=== PATIENT | male | born 1955 | race Caucasian/White ===

== ENCOUNTER 2018-04-24 22:43 | Observation (INO) | payer BC ==
[2018-04-24] MEDS ORDERED: Morphine 2 MG/ML Syringe IVPUSH PRN (23:36)
--- NOTE | 2018-04-24 23:49 | PCM.HP ---
H&P History of Present Illness - General Date of Service: 04/24/18 Admit Problem/Dx: Admission Diagnosis/Problem Admission Diagnosis/Problem Appendicitis Source of Information: Patient History Limitations: Reports: No Limitations - History of Present Illness Onset of Symptoms: Reports: Today, Gradual Duration of Symptoms: Reports: Getting Worse Location: Reports: Abdomen Quality: Reports: Dull, Pressure Severity: Mild Improves with: Reports: None Worsens with: Reports: Breathing, Movement Associated Symptoms: Reports: Loss of Appetite. Denies: Confusion, Chest Pain, Cough, Fever/Chills, Nausea/Vomiting, Shortness of Breath Right Lower Abdominal Pain Score (Numeric/FACES): 1 - Related Data Allergies/Adverse Reactions: Allergies Allergy/AdvReac Type Severity Reaction Status Date / Time No Known Allergies Allergy Verified 04/24/18 22:47 Home Medications: Home Meds . [No Known Home Meds] 04/24/18 [History] Past Medical History - Past Health History Medical/Surgical History: Denies Medical/Surgical History (Healthy smoker) - Past Surgical History HEENT Surgical History: Reports: Tonsillectomy Social & Family History - Family History Family Medical History: Noncontributory H&P Review of Systems - Review of Systems: Review Of Systems: ROS reveals no pertinent complaints other than HPI. General: Reports: No Symptoms HEENT: Reports: No Symptoms Pulmonary: Reports: No Symptoms Cardiovascular: Reports: No Symptoms Gastrointestinal: Reports: No Symptoms Genitourinary: Reports: No Symptoms Musculoskeletal: Reports: No Symptoms Skin: Reports: No Symptoms Psychiatric: Reports: No Symptoms Neurological: Reports: No Symptoms Hematologic/Lymphatic: Reports: No Symptoms Immunologic: Reports: No Symptoms Exam - Exam Exam: See Below - Vital Signs Vital Signs: Last Vital Signs Temp 100.1 F 04/24/18 22:44 Pulse 83 04/24/18 22:44 Resp 16 04/24/18 22:44 BP 120/61 04/24/18 22:44 Pulse Ox 92 L 04/24/18 22:44 Weight: 195 lb - Exam General: Alert, Oriented, Cooperative HEENT: PERRLA, Hearing Intact, Mucosa Moist & [place], Nares Patent, Normal Nasal Septum, Posterior Pharynx Clear, Conjunctiva Clear, EOMI, EACs Clear, TMs Clear Neck: Supple, Trachea Midline, 2 Lungs: Clear to Auscultation, Normal Respiratory Effort Cardiovascular: Regular Rate, Regular Rhythm GI/Abdominal Exam: Normal Bowel Sounds, Soft, Tender (Male) Exam: No Hernia, Normal Inspection Rectal (Males) Exam: Deferred Back Exam: Normal Inspection Extremities: Normal Inspection Peripheral Pulses: 4+: Posterior Tibial (L), Posterior Tibial (R), Dorsalis Pedis (L), Dorsalis Pedis (R) Skin: Warm, Dry Neurological: Cranial Nerves Intact Neuro Extensive - Mental Status: Alert, Oriented x3, Normal Mood/Affect, Normal Cognition, Memory Intact Neuro Extensive - Motor, Sensory, Reflexes: CN II-XII Intact Psychiatric: Alert, Normal Affect Problem List Initiated/Reviewed/Updated: Yes Orders Last 24hrs: Active Orders 24 hr Category Date Time Status Admission Status [Patient Status] [ADT] Routine ADT 04/24/18 23:04 Active RT Incentive Spirometry [RC] Q1HWA Care 04/24/18 23:32 Ordered Verify Patient Consent Obtain [RC] ASDIRECTED Care 04/24/18 23:32 Ordered Dextrose 5%-1/2 Normal Saline with KCl 20 mEq @ 125 mL/ Med 04/24/18 23:45 Ordered Hr (1000 mL) D5 1/2 NS w/ 20 mEq/L KCl 1,000 ml IV ASDIRECTED Morphine Med 04/24/18 23:36 Ordered 2 mg IVPUSH Q1H PRN cefTRIAXone [Rocephin] Med 04/25/18 09:00 Once 1,000 mg IVPUSH ONETIME ONE metroNIDAZOLE/Normal Saline [Flagyl 500 MG in NS 100 ML Med 04/24/18 23:45 Ordered ] 500 mg Premix Bag 1 bag IV Q8H Resuscitation Status Routine Resus Stat 04/24/18 23:32 Ordered Medication Orders Ceftriaxone Sodium (Rocephin) 1,000 mg IVPUSH ONETIME ONE Stop: 04/25/18 09:01 Potassium Chloride/Dextrose/Sod Cl (D5 1/2 Ns W/ 20 Meq/L Kcl) 1,000 mls @ 125 mls/hr IV ASDIRECTED [facility] Metronidazole 500 mg/ Premix 100 mls @ 100 mls/hr IV Q8H [facility] Morphine Sulfate (Morphine) 2 mg IVPUSH Q1H PRN PRN Reason: Abdominal Pain CT c/w early appendicitis. 5 mm pulmonary nodule noted and discussed with patient and and they will follow up with PMD Riska and alternatives of laparoscopic possible open appendectomy fully discussed and accepted.
[2018-04-25] MEDS ORDERED: Enoxaparin 40 MG/0.4 ML Syringe SUBCUT ONE (00:01)
[2018-04-25] MEDS: D5 1/2 NS w/ 20 mEq/L KCl 1,000 ML IV SCH ×2 (00:29→08:22)
[2018-04-25] MEDS: metroNIDAZOLE/Normal Saline 500 MG in Premix Bag 1 BAG IV SCH ×2 (00:32→06:06)
--- NOTE | 2018-04-25 08:44 | PCM.PREANE ---
Preanesthetic Assessment - Procedure Proposed Procedure: lap appy - Anesthesia/Transfusion/Family Hx Anesthesia History: Prior Anesthesia Without Reaction Family History of Anesthesia Reaction: No Transfusion History: No Prior Transfusion(s) - Review of Systems General: Fever, Chills (yesterday am at 3 ) Pulmonary: No Symptoms Cardiovascular: No Symptoms Gastrointestinal: Abdominal Pain (right lower) Neurological: No Symptoms Other: Reports: None - Physical Assessment NPO Status Date: 04/24/18 NPO Status Time: 22:30 Pulse: 98 O2 Sat by Pulse Oximetry: 96 Respiratory Rate: 18 Blood Pressure: 117/54 Temperature: 100.0 F Vital Signs: Last Vital Signs Temp 100.0 F 04/25/18 08:34 Pulse 98 04/25/18 08:34 Resp 18 04/25/18 08:34 BP 117/54 L 04/25/18 08:34 Pulse Ox 92 L 04/25/18 08:34 Height: 6 ft Weight: 88.451 kg ASA Class: 2 Mental Status: Alert & Oriented x3 Airway Class: Mallampati = 1 Dentition: Reports: Normal Dentition Thyro-Mental Finger Breadths: 2 Mouth Opening Finger Breadths: 3 ROM/Head Extension: Full Lungs: Clear to Auscultation, Normal Respiratory Effort, Decreased Breath Sounds Cardiovascular: Regular Rate, Regular Rhythm - Allergies Allergies/Adverse Reactions: Allergies Allergy/AdvReac Type Severity Reaction Status Date / Time No Known Allergies Allergy Verified 04/24/18 22:47 - Blood Blood Available: No - Acknowledgements Anesthesia Type Planned: General Anesthesia Pt an Appropriate Candidate for the Planned Anesthesia: Yes Alternatives and Risks of Anesthesia Discussed w Pt/Guardian: Yes Pt/Guardian Understands and Agrees with Anesthesia Plan: Yes PreAnesthesia Questionnaire - Past Health History Medical/Surgical History: Denies Medical/Surgical History (Healthy smoker) HEENT History: Reports: Other (See Below) Other HEENT History: Wears glasses. Recent Optometry appt noted to have small cataracts just starting Cardiovascular History: Reports: None Respiratory History: Reports: None, Other (See Below) (ct lung shows small nodule lungs) Gastrointestinal History: Reports: GERD (intermittent) Psychiatric History: Reports: None Oncologic (Cancer) History: Reports: None - Past Surgical History HEENT Surgical History: Reports: Tonsillectomy - History Comment History Comment: home meds- vits and ibuprofen - SUBSTANCE USE Smoking Status *Q: Current Every Day Smoker Tobacco Use Within Last Twelve Months: Cigarettes Second Hand Smoke Exposure: Yes Days Per Week of Alcohol Use: 1 Number of Drinks Per Day: 2 Total Drinks Per Week: 2 Recreational Drug Use History: No - HOME MEDS Home Medications: Home Meds . [No Known Home Meds] 04/24/18 [History] - CURRENT (IN HOUSE) MEDS Current Meds: Current Medications Cefazolin Sodium (Ancef) 2 gm IVPUSH ONETIME [facility] Stop: 04/25/18 12:00 Potassium Chloride/Dextrose/Sod Cl (D5 1/2 Ns W/ 20 Meq/L Kcl) 1,000 mls @ 125 mls/hr IV ASDIRECTED [facility] Last Admin: 04/25/18 08:22 Dose: 125 mls/hr Metronidazole 500 mg/ Premix 100 mls @ 100 mls/hr IV Q8H [facility] Last Admin: 04/25/18 06:06 Dose: 100 mls/hr Morphine Sulfate (Morphine) 2 mg IVPUSH Q1H PRN PRN Reason: Abdominal Pain Discontinued Medications Ceftriaxone Sodium (Rocephin) 1,000 mg IVPUSH ONETIME ONE Stop: 04/25/18 09:01 Enoxaparin Sodium (Lovenox) 40 mg SUBCUT ONETIME ONE Stop: 04/25/18 00:02 Last Admin: 04/25/18 00:31 Dose: 40 mg
[2018-04-25] MEDS ORDERED: Albuterol 0.083% 2.5 MG/3 ML Neb Soln NEB ONE (08:51)
[2018-04-25] MEDS ORDERED: ceFAZolin 1 GM Vial IVPUSH SCH (09:00)
[2018-04-25] MEDS ORDERED: cefTRIAXone 1,000 MG VIAL IVPUSH ONE (09:00)
[2018-04-25] MEDS ORDERED: Propofol 200 MG/20 ML SDV ONE (10:06)
[2018-04-25] MEDS ORDERED: Midazolam 1 MG/ML 2 ML SDV ONE (10:06)
[2018-04-25] MEDS ORDERED: Ondansetron 4 MG/2 ML SDV ONE (10:06)
[2018-04-25] MEDS ORDERED: fentaNYL 250 MCG/5 ML SDV ONE (10:06)
[2018-04-25] MEDS ORDERED: Rocuronium 50 MG/5 ML Vial ONE (10:06)
[2018-04-25] MEDS ORDERED: Lidocaine 1% 4 ML ONE (10:06)
[2018-04-25] MEDS ORDERED: Lactated Ringers 1,000 ML ONE ×2 (10:15→11:27)
[2018-04-25] MEDS ORDERED: Dexamethasone 4 MG/ML SDV ONE (10:46)
[2018-04-25] MEDS ORDERED: Phenylephrine/Normal Saline 100 MCG/ML 10 ML Syringe ONE (10:49)
[2018-04-25] MEDS ORDERED: HYDROmorphone 0.5 MG/0.5 ML Syringe ONE ×2 (10:50→10:51)
[2018-04-25] MEDS ORDERED: ceFAZolin 1 GM Vial ONE (10:51)
[2018-04-25] MEDS: Bupivacaine 0.5% 30 ML SDV ONE ×2 (11:26→11:43)
[2018-04-25] MEDS ORDERED: Neostigmine Methylsulfate 1 MG/ML 5 ML Syringe ONE (11:43)
[2018-04-25] MEDS ORDERED: Ketorolac 30 MG/ML SDV ONE (11:52)
--- NOTE | 2018-04-25 12:11 | PCM.POSTAN ---
POST ANESTHESIA ASSESSMENT - MENTAL STATUS Mental Status: Somnolent - VITAL SIGNS Pulse Rate: 90 SaO2: 91 Resp Rate: 14 Blood Pressure: 102/61 Temperature: 36.5 C - RESPIRATORY Respiratory Status: Respiratory Rate WNL, Airway Patent, O2 Saturation Stable, Supplemental Oxygen - CARDIOVASCULAR CV Status: Pulse Rate WNL, Blood Pressure Stable - GASTROINTESTINAL GI Status: No Symptoms - PAIN Pain Score: 0 - POST OP HYDRATION Hydration Status: Adequate & Stable
[2018-04-25] MEDS ORDERED: Meperidine 50 MG/ML Vial IVPUSH PRN (12:12)
[2018-04-25] MEDS ORDERED: fentaNYL 100 MCG/2 ML SDV IVPUSH PRN (12:12)
[2018-04-25] MEDS ORDERED: diphenhydrAMINE 50 MG/ML SDV IVPUSH PRN (12:12)
[2018-04-25] MEDS ORDERED: Ondansetron 4 MG/2 ML SDV IVPUSH PRN (12:12)
[2018-04-25] MEDS ORDERED: Acetaminophen/HYDROcodone 325-5 MG Tab PO PRN (12:15)
--- NOTE | 2018-04-25 12:15 | PCM.OPNOTE ---
- General Post-Op/Procedure Note Date of Surgery/Procedure: 04/25/18 Operative Procedure(s): Laparoscopic appendectomy Findings: appendicitis with perforation without free peritoneal contamination Pre Op Diagnosis: appendicitis Post-Op Diagnosis: same Anesthesia Technique: General ET Tube Primary Surgeon: Malcolm Crowley EBL in mLs: 10 Free Text/Narrative:: Intake & Output 04/24/18 04/25/18 04/25/18 22:59 06:59 14:59 Intake Total 948 Output Total 2150 Balance -1202
--- NOTE | 2018-04-25 12:28 | OR ---
DATE OF OPERATION: 04/25/2018 SURGEON: Malcolm Crowley MD PREOPERATIVE DIAGNOSIS: Appendicitis. POSTOPERATIVE DIAGNOSIS: Appendicitis. OPERATION PERFORMED: Laparoscopic appendectomy. ANESTHESIA: General via endotracheal tube. DESCRIPTION OF PROCEDURE: The patient was taken to the operating room. After informed consent, proper identification, and time-out, he was induced under general endotracheal inhalation anesthesia, and the abdomen was prepped and draped in a standard fashion and entered through a 2-cm incision above the umbilicus, which was carried down to the deep tissues with Metzenbaum scissors and Bovie cautery. The fascia was entered and digitally explored and secured with #1 Prolene pursestring suture and a Amanda cannula was placed. The abdomen was insufflated with CO2 and a 5-mm port was placed in the left lower abdomen and a 5-mm port in the right upper abdomen under direct visual observation. The appendix was inflamed and adherent to the anterior abdominal wall and the adhesions were taken down with irrigation and hydrodissection. The appendix was able to be elevated. The mesoappendix was localized and the base of the appendix was free of any inflammation. The appendix was divided with a SUJIT stapler at the cecum and the mesoappendix was divided in continuity between multiple Hemoclips. Hemostasis was assured. The appendix was placed into an EndoCatch bag and removed through the umbilical port without contamination of the skin. The wound was irrigated with copious amounts of saline solution. Sponge and needle counts were correct and the midline trocar site was closed with #1 Prolene suture. Previously placed trocars were removed under direct visual observation as was the closure of the midline trocar site. Deep tissues were approximated with 0 Vicryl interrupted sutures. The skin was closed with 3-0 Monocryl subcuticular closure at the small port sites. The skin at the umbilical port site was approximated loosely with 3-0 Vicryl suture and left open for secondary intention healing. The patient tolerated the procedure well, estimated blood loss was less than 10 mL, sponge and needle counts were correct, and he was taken to recovery room in satisfactory condition. ESTIMATED BLOOD LOSS: MMODAL /[id number]
[2018-04-25] MEDS ORDERED: HYDROmorphone 0.5 MG/0.5 ML Syringe IVPUSH ONE (12:35)
--- NOTE | 2018-04-25 12:57 | PCM48HPAN ---
Post Anesthesia Note - EVALUATION WITHIN 48HRS OF ANESTHETIC Vital Signs in Normal Range: Yes Patient Participated in Evaluation: Yes Respiratory Function Stable: Yes Airway Patent: Yes Cardiovascular Function Stable: Yes Hydration Status Stable: Yes Pain Control Satisfactory: Yes Nausea and Vomiting Control Satisfactory: Yes Mental Status Recovered: Yes
--- NOTE | 2018-04-25 17:38 | PCM.DCSUM1 ---
Discharge Summary - Discharge Data Discharge Date: 04/25/18 Discharge Disposition: Home, Self-Care 01 Condition: Good - Patient Summary/Data Operative Procedure(s) Performed: Laparoscopic appendectomy Complications: none Recommended Follow-up Testing/Procedures: Follow up with DR Call one week - Patient Instructions Diet: Heart Healthy Diet Activity: As Tolerated, Cough & Deep Breathe, No Lifting Over 10 Pounds Driving: Do Not Drive Showering/Bathing: May Shower Notify Provider of: Fever, Increased Pain, Swelling and Redness, Drainage, Nausea and/or Vomiting - Discharge Plan *PRESCRIPTION DRUG MONITORING PROGRAM REVIEWED*: No *COPY OF PRESCRIPTION DRUG MONITORING REPORT IN PATIENT RAMA: No Prescriptions/Med Rec: Acetaminophen/HYDROcodone [[place] 325-5 MG] 1 tab PO Q4H PRN #20 tablet PRN Reason: Pain (Moderate 4-6) Home Medications: Home Meds Acetaminophen/HYDROcodone [[place] 325-5 MG] 1 tab PO Q4H PRN #20 tablet 04/25/18 [Rx] Patient Handouts: Laparoscopic Appendectomy, Adult, Care After, Surgical Site Infections FAQs - CHURCH, Steps to Quit Smoking - Discharge Summary/Plan Comment DC Time >30 min.: No Discharge Summary/Plan Comment: follow up Dr Call 1 week - General Info Date of Service: 04/25/18 Functional Status: Reports: Pain Controlled - Review of Systems General: Reports: No Symptoms HEENT: Reports: No Symptoms Pulmonary: Reports: No Symptoms Cardiovascular: Reports: No Symptoms Gastrointestinal: Reports: No Symptoms Genitourinary: Reports: No Symptoms Musculoskeletal: Reports: No Symptoms Skin: Reports: No Symptoms Neurological: Reports: No Symptoms Psychiatric: Reports: No Symptoms - Patient Data Vitals - Most Recent: Last Vital Signs Temp 98.7 F 04/25/18 16:00 Pulse 65 04/25/18 16:31 Resp 16 04/25/18 13:06 BP 106/63 04/25/18 16:31 Pulse Ox 98 04/25/18 16:31 Weight - Most Recent: 195 lb I&O - Last 24 hours: Intake & Output 04/25/18 04/25/18 04/25/18 06:59 14:59 22:59 Intake Total 948 400 850 Output Total 2150 Balance -1202 400 850 Med Orders - Current: Current Medications Hydrocodone Bitart/Acetaminophen ([place] 325-5 Mg) 2 tab PO Q4H PRN PRN Reason: Pain (moderate 4-6) Potassium Chloride/Dextrose/Sod Cl (D5 1/2 Ns W/ 20 Meq/L Kcl) 1,000 mls @ 75 mls/hr IV ASDIRECTED [facility] Last Admin: 04/25/18 08:22 Dose: 125 mls/hr Morphine Sulfate (Morphine) 2 mg IVPUSH Q1H PRN PRN Reason: Abdominal Pain Discontinued Medications Albuterol (Proventil Neb Soln) 2.5 mg NEB ONETIME ONE Stop: 04/25/18 08:52 Last Admin: 04/25/18 09:49 Dose: 2.5 mg Bupivacaine HCl (Marcaine 0.5%) Confirm Administered Dose 30 ml .ROUTE .STK-MED ONE Stop: 04/25/18 10:09 Last Admin: 04/25/18 11:43 Dose: 20 ml Cefazolin Sodium (Ancef) 2 gm IVPUSH ONETIME [facility] Stop: 04/25/18 12:00 Cefazolin Sodium (Ancef) Confirm Administered Dose 2 gm .ROUTE .STK-MED ONE Stop: 04/25/18 10:52 Ceftriaxone Sodium (Rocephin) 1,000 mg IVPUSH ONETIME ONE Stop: 04/25/18 09:01 Dexamethasone (Dexamethasone) Confirm Administered Dose 8 mg .ROUTE .STK-MED ONE Stop: 04/25/18 10:47 Diphenhydramine HCl (Benadryl) 25 mg IVPUSH Q6H PRN PRN Reason: Pruritis Stop: 04/25/18 15:00 Enoxaparin Sodium (Lovenox) 40 mg SUBCUT ONETIME ONE Stop: 04/25/18 00:02 Last Admin: 04/25/18 00:31 Dose: 40 mg Fentanyl (Sublimaze) Confirm Administered Dose 250 mcg .ROUTE .STK-MED ONE Stop: 04/25/18 10:07 Fentanyl (Sublimaze) 50 mcg IVPUSH Q5M PRN PRN Reason: Pain Stop: 04/25/18 15:00 Glycopyrrolate () Confirm Administered Dose 1 mg .ROUTE .STK-MED ONE Stop: 04/25/18 11:44 Hydromorphone HCl (Dilaudid) Confirm Administered Dose 0.5 mg .ROUTE .STK-MED ONE Stop: 04/25/18 10:51 Hydromorphone HCl (Dilaudid) Confirm Administered Dose 0.5 mg .ROUTE .STK-MED ONE Stop: 04/25/18 10:52 Hydromorphone HCl (Dilaudid) 0.5 mg IVPUSH ONETIME ONE Stop: 04/25/18 12:36 Last Admin: 04/25/18 15:05 Dose: Not Given Metronidazole 500 mg/ Premix 100 mls @ 100 mls/hr IV Q8H [facility] Last Admin: 04/25/18 06:06 Dose: 100 mls/hr Lidocaine HCl (Xylocaine-Mpf 1%) Confirm Administered Dose 4 mls @ as directed .ROUTE .STK-MED ONE Stop: 04/25/18 10:07 Lactated Ringer's (Ringers, Lactated) Confirm Administered Dose 1,000 mls @ as directed .ROUTE .ST-MED ONE Stop: 04/25/18 10:16 Lactated Ringer's (Ringers, Lactated) Confirm Administered Dose 1,000 mls @ as directed .ROUTE .ST-MED ONE Stop: 04/25/18 11:28 Ketorolac Tromethamine (Toradol) Confirm Administered Dose 30 mg .ROUTE .STK- MED ONE Stop: 04/25/18 11:53 Meperidine HCl (Meperidine) 12.5 mg IVPUSH ONETIME PRN PRN Reason: Shivering Stop: 04/25/18 15:00 Midazolam HCl (Versed 1 Mg/Ml) Confirm Administered Dose 2 mg .ROUTE .STK-MED ONE Stop: 04/25/18 10:07 Neostigmine Methylsulfate (Neostigmine) Confirm Administered Dose 5 mg .ROUTE .STK-MED ONE Stop: 04/25/18 11:44 Ondansetron HCl (Zofran) Confirm Administered Dose 4 mg .ROUTE .STK-MED ONE Stop: 04/25/18 10:07 Ondansetron HCl (Zofran) 4 mg IVPUSH ONETIME PRN PRN Reason: Nausea/Vomiting Stop: 04/25/18 15:00 Phenylephrine HCl (Phenylephrine In Ns 100 Mcg/Ml) Confirm Administered Dose 1 mg .ROUTE .STK-MED ONE Stop: 04/25/18 10:50 Propofol (Diprivan 20 Ml) Confirm Administered Dose 200 mg .ROUTE .STK-MED ONE Stop: 04/25/18 10:07 Rocuronium [place] (Zemuron) Confirm Administered Dose 50 mg .ROUTE .STK-MED ONE Stop: 04/25/18 10:07 - Exam General: Reports: Alert, Cooperative, No Acute Distress HEENT: Reports: Pupils Equal Neck: Reports: Supple Lungs: Reports: Clear to Auscultation Cardiovascular: Reports: Regular Rate GI/Abdominal Exam: Normal Bowel Sounds (Male) Exam: No Hernia Rectal (Males) Exam: Normal Exam Back Exam: Reports: Normal Inspection Extremities: Normal Inspection Skin: Reports: Warm Wound/Incisions: Reports: Healing Well Neurological: Reports: No New Focal Deficit Psy/Mental Status: Reports: Alert, Normal Affect Discharge Operative/Procedures - Procedures Performed Operations: laparoscopic appendectomy
--- NOTE | 2018-04-25 18:24 | DISCH ---
ADMISSION DATE: 04/24/2018 DISCHARGE DATE: 04/25/2018 ADMITTING DIAGNOSIS: Appendicitis. DISCHARGE DIAGNOSIS: Status post laparoscopic appendectomy. HOSPITAL COURSE: The patient was admitted, transferred from [place]. He had Ct scan revealing corroborating suspicious appendicitis and was taken to the operating room on the following morning after IV hydration and antibiotic therapy. He underwent laparoscopic appendectomy and is requesting discharge on the first operative day. He is active ambulatory, tolerating clear liquid diet and has been advanced to a regular diet without nausea or vomiting. He is alert and appropriate. His abdomen is soft and nontender. His pain is well controlled. He is provided with a prescription for a progressive analgesia. He will be seen in followup in approximately [address] Call. In this way, he may contact me to answer the questions of the problem. FINAL DIAGNOSIS: DISCHARGE MEDICATIONS: DIET: ACTIVITY: FOLLOW-UP: CONDITION ON DISCHARGE: MMODAL /[id number]
--- NOTE | 2018-04-26 07:26 | PCM48HPAN ---
Post Anesthesia Note - EVALUATION WITHIN 48HRS OF ANESTHETIC Vital Signs in Normal Range: Yes Patient Participated in Evaluation: No (per RN) Respiratory Function Stable: Yes Airway Patent: Yes Cardiovascular Function Stable: Yes Hydration Status Stable: Yes Pain Control Satisfactory: Yes Nausea and Vomiting Control Satisfactory: Yes Mental Status Recovered: Yes Pulse Rate: 77 Resp Rate: 16 Temperature: 37.1 C Blood Pressure: 106/60 - COMMENTS/OBSERVATIONS Free Text/Narrative:: no anesthesia complications noted
== END 2018-04-25 18:10 | disposition home or self-care (01) ==
LOC: JD.ED 22:43 → JD.MS 23:16
PROVIDERS: ADMIT Surgery; ATTEND Surgery
DX: K35.32 Acute appendicitis with perforation, localized peritonitis, and gangrene, without abscess (principal); F17.210 Nicotine dependence, cigarettes, uncomplicated; K21.9 Gastro-esophageal reflux disease without esophagitis
CPT/HCPCS: 44970; 93005; 94640; 96361; 96365; 96366; 96372; 99285; G0378; J0690; J1100; J1170; J1650; J1885; J2250; J2370; J2405; J2704; J2710; J3010; J3480; J3490; J7120; 00840; J2001